=== PATIENT | female | born 1950 | race Caucasian/White ===

== ENCOUNTER 2016-08-10 21:59 | Observation (INO) | payer MEDICARE, SELFPAY ==
[~2016-08-10 21:59] MED LIST: ACETAMINOPHEN325 MG PO; ASPIR 8181 MG PO; COLACE100 MG PO; FENOFIBRATE160 MG PO; FLECTOR1 EACH TOP; HYDROCODON-ACE1 EAC2 PO; LIPITOR80 MG PO; LISINOPRIL20 MG PO; MOBIC7.5 MG PO; POLYETHYLENE GL17 GM PO; PROTONIX40 MG PO; SEROQUEL50 MG PO; SYNTHROID50 MCG PO; VITAMIN D350000 UNIT PO; ZOLOFT50 MG PO
[2016-08-13] MEDS ORDERED: NORCO 7.5-3251 EACH PO (08:57)
[2016-08-13] MEDS ORDERED: SEROQUEL50 MG PO (08:58)
[2016-08-13] MEDS ORDERED: ZOLOFT100 MG PO (09:00)
[2016-08-13] MEDS ORDERED: AMITRIPTYLINE H75 MG PO (09:00)
[2016-08-13] MEDS ORDERED: PROTONIX40 MG PO (09:01)
[2016-08-13] MEDS ORDERED: VITAMIN D250000 UNIT PO (09:01)
[2016-08-13] MEDS ORDERED: COLACE100 MG PO (09:01)
[2016-08-13] MEDS ORDERED: ASPIR 8181 MG PO (09:02)
[2016-08-13] MEDS ORDERED: LIPITOR80 MG PO (09:02)
[2016-08-13] MEDS ORDERED: FERROUS SULFAT325 MG PO (09:03)
== END 2016-08-12 15:45 | disposition home or self-care (01) ==
LOC: ER 21:59 → MED 08-11 00:45
PROVIDERS: ADMIT Internal Medicine
DX: I95.1 Orthostatic hypotension (principal); I10 Essential (primary) hypertension; N17.9 Acute kidney failure, unspecified; E87.2 Acidosis; G89.29 Other chronic pain; F41.9 Anxiety disorder, unspecified; F32.9 Major depressive disorder, single episode, unspecified; Z82.49 Family history of ischemic heart disease and other diseases of the circulatory system; Z88.0 Allergy status to penicillin; Z79.82 Long term (current) use of aspirin; Z79.899 Other long term (current) drug therapy; Z90.49 Acquired absence of other specified parts of digestive tract; Z98.890 Other specified postprocedural states
CPT/HCPCS: 36415; 96372; 97162-GP; 97166; G0378; J1650

== ENCOUNTER 2016-08-10 21:59 | Emergency (ER) | payer MEDICARE, SELFPAY ==
[2016-08-13] MEDS ORDERED: NORCO 7.5-3251 EACH PO (08:57)
[2016-08-13] MEDS ORDERED: SEROQUEL50 MG PO (08:58)
[2016-08-13] MEDS ORDERED: AMITRIPTYLINE H75 MG PO (09:00)
[2016-08-13] MEDS ORDERED: ZOLOFT100 MG PO (09:00)
[2016-08-13] MEDS ORDERED: PROTONIX40 MG PO (09:01)
[2016-08-13] MEDS ORDERED: COLACE100 MG PO (09:01)
[2016-08-13] MEDS ORDERED: VITAMIN D250000 UNIT PO (09:01)
[2016-08-13] MEDS ORDERED: LIPITOR80 MG PO (09:02)
[2016-08-13] MEDS ORDERED: ASPIR 8181 MG PO (09:02)
[2016-08-13] MEDS ORDERED: FERROUS SULFAT325 MG PO (09:03)
== END 2016-08-11 00:45 | disposition critical access hospital (66) ==
LOC: ER 21:59
DX: R55 Syncope and collapse (principal); F41.9 Anxiety disorder, unspecified; K21.9 Gastro-esophageal reflux disease without esophagitis; I10 Essential (primary) hypertension; Z90.89 Acquired absence of other organs; Z79.899 Other long term (current) drug therapy; Z88.0 Allergy status to penicillin
CPT/HCPCS: 51701; 96361; 96365

== ENCOUNTER 2016-10-22 21:34 | Emergency (ER) | payer MEDICARE, SELFPAY ==
[~2016-10-22 21:34] MED LIST changes: +AMITRIPTYLINE H75 MG PO; +FERROUS SULFAT325 MG PO; +NORCO 7.5-3251 EACH PO; +VITAMIN D250000 UNIT PO; +ZOLOFT100 MG PO
== END 2016-10-23 | disposition home or self-care (01) ==
LOC: ER 21:34
DX: R55 Syncope and collapse (principal); E86.0 Dehydration; I95.1 Orthostatic hypotension; K21.9 Gastro-esophageal reflux disease without esophagitis; F41.9 Anxiety disorder, unspecified; I10 Essential (primary) hypertension; E11.9 Type 2 diabetes mellitus without complications; E78.00 Pure hypercholesterolemia, unspecified; F32.9 Major depressive disorder, single episode, unspecified; Z79.899 Other long term (current) drug therapy; Z88.0 Allergy status to penicillin
CPT/HCPCS: 36415; 96360; 96361

== ENCOUNTER 2016-10-31 19:27 | Emergency (ER) | payer MEDICARE | END 2016-10-31 21:58 | disposition home or self-care (01) | LOC: ER 19:27 | DX: M25.562 Pain in left knee (principal); K21.9 Gastro-esophageal reflux disease without esophagitis; E11.9 Type 2 diabetes mellitus without complications; E78.5 Hyperlipidemia, unspecified; I10 Essential (primary) hypertension; E03.9 Hypothyroidism, unspecified; F41.9 Anxiety disorder, unspecified; Z90.49 Acquired absence of other specified parts of digestive tract; Z88.0 Allergy status to penicillin; Z79.899 Other long term (current) drug therapy; W18.30XA Fall on same level, unspecified, initial encounter; Y92.009 Unspecified place in unspecified non-institutional (private) residence as the place of occurrence of the external cause ==